=== PATIENT | male | born 1975 | race Caucasian/White ===

== ENCOUNTER 2020-12-28 05:01 | Emergency (ER) | payer BC ==
[2020-12-28 05:28] LABS: WHITE BLOOD COUNT 7.7 K/UL (4.5-11.0)
[2020-12-28 05:52] LABS: BUN/CREATININE RATIO 16 (0-10)
[2020-12-28] MEDS ORDERED: ASPIRIN CHEWABL81 MG PO (06:44)
== END 2020-12-28 07:06 | disposition home or self-care (01) ==
LOC: ER1 05:01
PROVIDERS: Family Medicine
DX: R07.9 Chest pain, unspecified (principal); F17.200 Nicotine dependence, unspecified, uncomplicated; E78.5 Hyperlipidemia, unspecified
CPT/HCPCS: 71045; 80053; 82550; 82553; 83874; 84484; 85025; 93005; 99285